=== PATIENT | male | born 1985 | race Hispanic/Latino ===

== ENCOUNTER 2018-12-15 10:56 | Outpatient (CLI) | payer OTHER ==
--- NOTE | 2018-12-15 11:24 | RAD ---
RIGHT FOREARM 2 VIEWS: Date: 12/15/18 HISTORY: Injury, right forearm pain. FINDINGS/IMPRESSION: There is a displaced fracture involving the distal shaft of the right ulna with dorsal radial displac ement of the distal fragment. POS: OFF
== END 2018-12-15 10:57 | disposition home or self-care (01) ==
LOC: BICRAD 10:56
DX: S59.911A Unspecified injury of right forearm, initial encounter (principal); S52.201A Unspecified fracture of shaft of right ulna, initial encounter for closed fracture; S52.501A Unspecified fracture of the lower end of right radius, initial encounter for closed fracture